=== PATIENT | female | born 1975 | race Two or more races ===

== ENCOUNTER 2023-08-24 06:22 | Emergency (ER) | payer MEDICAID, OTHER ==
[~2023-08-24] VITALS: Ht 172.7 cm; Wt 59.5 kg
[2023-08-24 06:27] VITALS: BP 106/57; PULSE 93; RESP 16; TEMP 98.2
[2023-08-24 07:38] LABS: BASOPHILS % (AUTO) 1.5 % (0.0-2.0); EOSINOPHILS % (AUTO) 1.7 % (1.0-6.0); HEMATOCRIT 35.1 % (36-46); HEMOGLOBIN 11.8 g/dL (12.0-16.0); LYMPHOCYTES # (AUTO) 0.8 K/uL (1.0-4.8); LYMPHOCYTES % (AUTO) 19.6 % (22.0-44.0); MEAN CORPUSCULAR HEMOGLOBIN 34.6 pg (26.0-34.0); MEAN CORPUSCULAR HGB CONC 33.6 G/dL (31.0-37.0); MEAN CORPUSCULAR VOLUME 103 fL (80-100); MONOCYTES # (AUTO) 0.4 K/uL (0.1-1.0); MONOCYTES % (AUTO) 10.5 % (2.0-9.0); NEUTROPHILS # (AUTO) 2.8 K/uL (1.8-7.7); NEUTROPHILS % (AUTO) 66.7 % (40.0-70.0); PLATELET COUNT (AUTO) 240 K/uL (150-450); RED BLOOD CELL COUNT(AUTO) 3.41 MIL/uL (4.00-5.20); RED CELL DISTRIBUTION WIDTH 16.2 % (11.5-14.5); WHITE BLOOD COUNT (AUTO) 4.2 K/uL (4.5-11.0)
[2023-08-24 07:44] LABS: CALCIUM, TOTAL 9.3 mg/dL (8.8-10.5); CREATININE 11.59 mg/dL (0.60-1.30); POTASSIUM 5.9 mmol/L (3.5-5.1)
[2023-08-24 07:50] LABS: PROTHROMBIN TIME 10.4 SEC (9.4-11.6); TROPONIN I-HIGH SENSITIVITY 7 ng/L (<51)
[2023-08-24 07:54] LABS: ALBUMIN 3.8 g/dL (3.4-5.0); BILIRUBIN,TOTAL 0.4 mg/dL (0.1-1.0); TOTAL PROTEIN, SERUM 8.3 g/dL (6.4-8.2)
[2023-08-24] MEDS ORDERED: SODIUM ZIRCONIUM CYCLOSILICATE 5 GM POWDER PACKET PO ONE (09:45)
== END 2023-08-24 10:17 | disposition home or self-care (01) ==
LOC: EMS 06:24 → AHU 09:41 → UNDOADMIN 09:41
DX: T82.41XA Breakdown (mechanical) of vascular dialysis catheter, initial encounter (principal); E87.5 Hyperkalemia; F12.90 Cannabis use, unspecified, uncomplicated; Z98.890 Other specified postprocedural states
CPT/HCPCS: 71045; 80053; 83880; 84484; 85025; 85610; 85730; 93005; 99285; G0378; Q9967